=== PATIENT | male | born 1945 | race Caucasian/White ===

== ENCOUNTER → 2016-09-12 | Outpatient (CLI) | payer OTHER ==
[~2016-09-12] MED LIST: ASCO500T3 PO; DVN/160 PO; FERR1TAB13 PO; INSPMPNVLG; L-ME1CAP3 PO; LPT/40 PO; MULT1CAP35 PO; OMEG1CAP14 PO; POTACAP PO; SERT50TA PO; TADA20TA PO; WLLSR/300 PO; [UNRECOGNIZED DRUG - CODE] PO
[2016-09-12 16:46] LABS: ALT/SGPT 27 U/L (12-78); AST/SGOT 19 U/L (15-37); BLOOD UREA NITROGEN 26 mg/dl (7-18); BUN/CREATININE RATIO 17.1 (10-20); CALCIUM 8.8 mg/dl (8.5-10.1); CARBON DIOXIDE 27 mmol/L (21-32); CHLORIDE 107 mmol/L (98-107); GLUCOSE 68 mg/dl (70-99); POTASSIUM 4.4 mmol/L (3.5-5.1); SODIUM 142 mmol/L (136-145)
[2016-09-12 16:57] LABS: ALB/GLOB RATIO 1.2 (0.9-2); ALKALINE PHOSPHATASE 33 U/L (45-117); CHOLESTEROL 171 mg/dl (0-200); CHOLESTEROL/HDL RATIO 2.1; HDL CHOLESTEROL 82 mg/dl; TRIGLYCERIDES 58 mg/dl (0-150); VERY LOW DENSITY LIPOPROT CALC 12 mg/dl
[2016-09-12 17:10] LABS: RATIO 11.9 mcg/mg (0-30.0)
[2016-09-13 07:13] LABS: ESTIMATED AVERAGE GLUCOSE 134 mg/dl; HA1C FLAG Normal (Normal)
== END | disposition home or self-care (01) ==
LOC: C.LAB1850 15:41
PROVIDERS: ATTEND Internal Medicine Endocrinology, Diabetes & Metabolism
DX: E10.9 Type 1 diabetes mellitus without complications (principal)

== ENCOUNTER → 2017-05-04 | Outpatient (CLI) | payer OTHER ==
[2017-05-04 16:56] LABS: THYROID STIMULATING HORMONE 2.73 uIu/ml (0.300-4.500)
[2017-05-05 06:13] LABS: ESTIMATED AVERAGE GLUCOSE 134 mg/dl; HA1C FLAG Normal (Normal)
== END | disposition home or self-care (01) ==
LOC: C.LAB1850 15:16
PROVIDERS: ATTEND Internal Medicine Endocrinology, Diabetes & Metabolism
DX: E78.5 Hyperlipidemia, unspecified (principal); I10 Essential (primary) hypertension; E10.9 Type 1 diabetes mellitus without complications

== ENCOUNTER → 2017-05-07 | Outpatient (CLI) | payer OTHER | END | disposition home or self-care (01) | LOC: C.LABBC 12:44 | PROVIDERS: ATTEND Internal Medicine Endocrinology, Diabetes & Metabolism | DX: E10.21 Type 1 diabetes mellitus with diabetic nephropathy (principal) ==

== ENCOUNTER → 2017-09-10 | Outpatient (CLI) | payer OTHER ==
[2017-09-10 13:58] LABS: HEMOGLOBIN A1C 5.9 % (4.5-5.6)
== END | disposition home or self-care (01) ==
LOC: C.LABBC 12:10
PROVIDERS: ATTEND Internal Medicine Endocrinology, Diabetes & Metabolism
DX: E10.9 Type 1 diabetes mellitus without complications (principal); E03.9 Hypothyroidism, unspecified; E78.5 Hyperlipidemia, unspecified

== ENCOUNTER 2017-11-02 12:42 | Emergency (ER) | payer OTHER ==
[~2017-11-02] VITALS: Ht 180.3 cm; Wt 85.3 kg
[~2017-11-02 12:42] MED LIST changes: -ASCO500T3 PO; -DVN/160 PO; -INSPMPNVLG; -LPT/40 PO; -OMEG1CAP14 PO; -POTACAP PO; -SERT50TA PO; -WLLSR/300 PO; -[UNRECOGNIZED DRUG - CODE] PO
[2017-11-02 12:47] VITALS: TEMP 37; Ht 180.3 cm; Wt 85.3 kg
--- NOTE | 2017-11-02 15:28 | EMERGENCY ROOM VISIT NOTE ---
ED Visit Note First contact with patient: 15:08 Resident Physician Supervision Note: I interviewed and examined the patient. Discussed with Dr. John and agree with findings and plan as documented in the note. Documented By: Jose Luis Cannon
[2017-11-02] MEDS ORDERED: MoRPHine SULFATE 4 MG/ML 1 ML CARP\\VIAL IV STA (15:38)
[2017-11-02] MEDS ORDERED: EZET10TA63 PO (15:51)
[2017-11-02 16:00] LABS: BASO % 0.2 %; BASO ABS # 0.02 K/uL (0-0.2); EOS % 0.5 %; EOS ABS # 0.04 K/uL (0-0.5); HEMOGLOBIN 13.6 g/dL (14.0-18.0); IG# 0.01 K/uL (0.00-0.02); LYMPH % 26.1 %; MEAN CELL VOLUME 89.9 fL (80-100); MEAN CORPUSCULAR HEMOGLOBIN 30.6 pg (25-34); MEAN PLATELET VOLUME 11.1 fL (7.4-10.4); MONO % 7.9 %; MONO ABS # 0.67 K/uL (0.11-0.59); NEUT % 65.2 %; NEUT ABS # 5.49 K/uL (1.4-6.5); PLATELET COUNT 203 K/uL (130-400); RED CELL DISTRIBUTION WIDTH CV 13.3 % (11.5-14.5); RED CELL DISTRIBUTION WIDTH SD 43.5 fL (36.4-46.3); WHITE BLOOD COUNT 8.43 K/uL (4.8-10.8)
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
[2017-11-02 16:21] LABS: ALBUMIN 3.8 gm/dl (3.4-5.0); CALCIUM 8.8 mg/dl (8.5-10.1); CREATININE 1.43 mg/dl (0.60-1.40); POTASSIUM 4.3 mmol/L (3.5-5.1)
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
[2017-11-02 16:24] LABS: TOTAL PROTEIN 7.6 gm/dl (6.4-8.2)
[2017-11-02] MEDS ORDERED: LIDODERM (LIDOCAINE) PATCH 5% TD STA (16:42)
[2017-11-02] MEDS ORDERED: OXYCODONE HCL IR 5 MG TAB (IMMEDIATE RELEASE) PO STA (16:42)
[2017-11-02] MEDS ORDERED: SENN1TAB77 PO (17:01)
[2017-11-02] MEDS ORDERED: OXYC1TAB3 PO (17:01)
[2017-11-02 17:54] VITALS: BP 131/59; PULSE 79; O2SAT 94
[2017-11-02] MEDS ORDERED: ASCO500T3 PO (18:30)
[2017-11-02] MEDS ORDERED: INSPMPNVLG (18:30)
[2017-11-02] MEDS ORDERED: OMEG1CAP14 PO (18:30)
[2017-11-02] MEDS ORDERED: WLLSR/300 PO (18:30)
[2017-11-02] MEDS ORDERED: LPT/40 PO (18:30)
[2017-11-02] MEDS ORDERED: [UNRECOGNIZED DRUG - CODE] PO (18:30)
[2017-11-02] MEDS ORDERED: POTACAP PO (18:44)
[2017-11-02] MEDS ORDERED: DVN/160 PO (18:44)
[2017-11-02] MEDS ORDERED: SERT50TA PO (18:44)
== END 2017-11-02 17:55 | disposition home or self-care (01) ==
LOC: C.EDB 12:43 → C.EDC 17:55
DX: S22.21XA Fracture of manubrium, initial encounter for closed fracture (principal); S22.32XA Fracture of one rib, left side, initial encounter for closed fracture; V49.40XA Driver injured in collision with unspecified motor vehicles in traffic accident, initial encounter; E10.9 Type 1 diabetes mellitus without complications; Z79.82 Long term (current) use of aspirin; Z79.4 Long term (current) use of insulin; Z96.41 Presence of insulin pump (external) (internal)

== ENCOUNTER 2019-04-12 14:43 | Inpatient (IN) ==
--- NOTE | 2019-04-12 14:59 | XRay Report ---
XR chest 1V portable CLINICAL HISTORY: Dyspnea COMPARISON STUDY: 04/10/2019 FINDINGS: There are postsurgical changes of a midline sternotomy. The heart is the upper limits of no rmal in size. There is no failure. There is no focal pulmonary consolidation. There is an equivocal t race left pleural effusion. Minimal left basilar opacities are likely atelectatic IMPRESSION: 1. Suspected trace left pleural effusion 2. Minimal left basilar opacities, likely atelectatic Electronically signed by: Cuate Magallanes M.D. 04/12/2019 2:58 PM
[2019-04-12 15:16] LABS: Basophils # (auto) 0.03 K/uL (0-0.2); Basophils % (auto) 0.4 %; Eosinophils # (auto) 0.49 K/uL (0-0.5); Eosinophils % (auto) 5.9 %; Hemoglobin 9.7 g/dL (14.0-18.0); Immature Granulocytes # (auto) 0.02 K/uL (0.00-0.02); Immature Granulocytes % (auto) 0.2 %; Lymphocytes # (auto) 1.21 K/uL (1.2-3.4); Lymphocytes % (auto) 14.5 %; Mean Corpuscular Hgb Conc 33.4 g/dL (32-36); Mean Corpuscular Volume 91.5 fL (80-100); Mean Platelet Volume 10.6 fL (7.4-10.4); Monocytes # (auto) 0.81 K/uL (0.11-0.59); Monocytes % (auto) 9.7 %; Neutrophils % (auto) 69.3 %; Platelet Count 266 K/uL (130-400); RDW Coefficient of Variation 13.6 % (11.5-14.5); RDW Standard Deviation 45.1 fL (36.4-46.3); Red Blood Count 3.17 M/uL (4.7-6.1); White Blood Count 8.36 K/uL (4.8-10.8)
--- NOTE | 2019-04-12 15:23 | Emergency Department Note ---
Entered by Rex Trore acting as a scribe for History of Present Illness General Chief complaint: Shortness of Breath/Dyspnea Time Seen by Provider: 04/12/19 14:47 Source: patient History of Present Illness Onset (ago): day(s) (few) Location: chest Pain Consistency: + constant Quality: + other (SOB) Exacerbated By: + other (exertion) Associated symptoms: + other (dizziness and lightheadedness) The patient is a 73 y/o male who presents to the ED w/ CC of constant shortness of breath upon exertion beginning a few days ago. The patient states he had an open heart surgery last Thursday and was discharged from [place] on Thursday. He reports prior to coming home from [facility] he performed some rehab by walking around the unit several times. The patient notes he sat in the car for 1.5 hours after discharge Thursday and drove straight to [facility] to get his medication. He states he got out of the car and was instantly dizzy. The patient reports he felt like he was going to pass out and the room was spinning at the same time. He notes shortly after being in the store he was gasping for air and then had to take a break. The patient states he was able to make it back to the car. He reports this happened again yesterday while he tried walking a mile. The patient notes he had to stop 15 times when he normally does not have to. He states he was evaluated in the ED yesterday for shortness of breath and was told it may have been secondary to dehydration. The patient reports he was evaluated by Dr. Jesus, Cardiology today and was referred to the ED. Dr. Jesus called the ED and informed me that he noticed the interior valve between the left and right part of the heart was not working as well as it should be on the echocardiogram. He reports he is concerned the patient may have a PE. Home Medications Home Medications Medication Instructions Recorded Confirmed Type ascorbic acid (vitamin C) [Vitamin 500 mg PO DAILY@2300 #0 11/10/15 04/12/19 History C] insulin aspart U-100 1 sliding scale dose SUBCUT 11/10/15 04/12/19 History CONTINOUS #3 omega 6-xuv-kqa-fish oil 1 cap PO DAILY@2300 #0 11/10/15 04/12/19 History sertraline [Zoloft] 50 mg PO DAILY@2300 #0 11/10/15 04/12/19 History atorvastatin 80 mg tablet 80 mg PO DAILY@2300 tab 02/23/19 04/12/19 History bupropion HCl XL 300 mg 24 hr 300 mg PO DAILY@2300 tab 02/23/19 04/12/19 History tablet, extended release docusate sodium 100 mg capsule 100 mg PO BID cap 02/23/19 04/12/19 History ezetimibe 10 mg tablet 10 mg PO DAILY@2300 #90 tab 02/23/19 04/12/19 History ferrous sulfate 325 mg (65 mg 650 mg PO QAM tab 02/23/19 04/12/19 History iron) tablet levothyroxine 50 mcg tablet 50 mcg PO QAM #90 tab 02/23/19 04/12/19 History ranitidine 150 mg tablet 300 mg PO DAILY@2300 tab 02/23/19 04/12/19 History loratadine [Claritin] 10 mg PO DAILY@2300 04/04/19 04/12/19 History vitamin B complex 1 tab PO DAILY@2300 04/04/19 04/12/19 History amiodarone 200 mg PO BID 04/10/19 04/12/19 History aspirin 162 mg PO QAM 04/10/19 04/12/19 History furosemide [Lasix] 40 mg PO DAILY@2300 04/10/19 04/12/19 History metoprolol succinate 25 mg PO DAILY@2300 04/10/19 04/12/19 History oxycodone 5 mg PO Q4H PRN 04/10/19 04/12/19 History Allergies Allergy/AdvReac Type Severity Reaction Status Date / Time No Known Allergies Allergy Verified 04/12/19 15:34 Past Med/Surg History Medical History Chronic renal insufficiency (Chronic) Diabetes mellitus type 1, controlled (Chronic) Dyslipidemia (Chronic) Hypertension (Chronic) Surgical History History of knee surgery History of left knee surgery History of quadruple bypass Family History Father Cardiac disorder Social History Preferred Language: Swedish Beliefs That Will Affect Care: None Current Living Situation: Alone Feels Safe at Home: Yes Smoking Status: Former smoker Hx Alcohol Use: No Hx Substance Use: No Review of Systems See HPI for pertinent positives & negatives. and A total of 10 systems reviewed and were otherwise negative Physical Exam Vital Signs Vital Signs - 24 hr 04/12/19 14:48 04/12/19 14:53 04/12/19 15:10 Temperature 37.1 C Temperature Source Oral Sepsis Recent Fever Within 48 Hours No Sepsis New/Unexplained Change in Mental Status No Sepsis Action Taken by Nursing No Action Required Pulse Rate 69 Pulse Rate [Right Finger] Pulse Rhythm Regular Pulse Strength Normal Respiratory Rate 20 Respiratory Effort / Characteristics Non-Labored Spontaneous Non-Labored Respiratory Depth Normal Respiratory Pattern Regular Blood Pressure 138/69 Blood Pressure [Right Arm] Blood Pressure Mean 92 Blood Pressure Mean [Right Arm] Blood Pressure Position Sitting Pulse Oximetry 93 93 Oxygen Delivery Method Room Air Room Air 04/12/19 15:38 04/12/19 16:39 04/12/19 17:58 Temperature Temperature Source Sepsis Recent Fever Within 48 Hours Sepsis New/Unexplained Change in Mental Status Sepsis Action Taken by Nursing Pulse Rate Pulse Rate [Right Finger] 67 70 96 H Pulse Rhythm Pulse Strength Respiratory Rate 18 20 20 Respiratory Effort / Characteristics Non-Labored Respiratory Depth Normal Respiratory Pattern Blood Pressure Blood Pressure [Right Arm] 141/66 H 138/61 155/60 H Blood Pressure Mean Blood Pressure Mean [Right Arm] 91 86 91 Blood Pressure Position Pulse Oximetry 98 98 98 Oxygen Delivery Method Room Air Room Air Room Air GENERAL: Patient is awake alert in no acute distress patient is resting comfortably and showing no signs of anxiety EYES: The conjunctivae are clear. The pupils are round and reactive. EARS, NOSE, MOUTH AND THROAT: The nose is without any evidence of any deformity. Mucous membranes are moist tongue is midline NECK: The neck is nontender and supple. RESPIRATORY: Diminished breath sounds are noted at both bases. There is no tachypnea or conversational dyspnea at rest. CARDIOVASCULAR: Regular rate and rhythm noted there no murmurs rubs or gallops normal S1 normal S2 GASTROINTESTINAL: The abdomen is soft. Bowel sounds are present in all quadrants. Abdomen is nontender MUSCULOSKELETAL/EXTREMITIES: There is no evidence of gross deformity full range of motion is noted in the hips and shoulders SKIN: There is no obvious evidence of any rash. Postoperative sites were noted on the upper abdomen the sternal area as well as the left lower extremity. There is no erythema or drainage or dehiscence appreciated. Pedal edema was noted bilaterally. Left greater than right. NEUROLOGIC: Patient is awake alert and oriented x3. Course 1459: Past medical records reviewed. The patient was evaluated in room C3. A complete history and physical exam was performed. 1702: I discussed the patient's case with Dr. Adams, Cardiology. He recommen ds the patient be further evaluated. 1715: I discussed the patient's case with Dr. Lui, [facility] Hospitalist. The patient will be evaluated for further management. Administered Medications Discontinued Medications Ioversol (Optiray 320 125ml) 119 ml IV ONCE PRN PRN Reason: Interaction Checking Stop: 04/16/19 16:28 Last Admin: 04/12/19 16:30 Dose: 119 ml Documented by: [id number] Medical Decision Making Differential Diagnosis Differential diagnoses includes but is not limited to pneumonia, bronchitis, COPD/Asthma exacerbation, pneumothorax, pulmonary embolism, congestive heart failure, acute coronary syndrome Medical Records Attestation: I reviewed the patient's medical records. Home Medications Current Medication List: was personally reviewed by me Laboratory Data Attestation: I reviewed the patient's lab results. Result diagrams: 04/12/19 14:48 04/12/19 14:48 Lab Results 04/12/19 04/12/19 04/12/19 Range/Units 14:48 14:48 15:12 WBC 8.36 (4.8-10.8) K/uL RBC 3.17 L (4.7-6.1) M/uL Hgb 9.7 L (14.0-18.0) g/dL Hct 29.0 L (42-52) % MCV 91.5 (80-100) fL MCH 30.6 (25-34) pg MCHC 33.4 (32-36) g/dL RDW Std Deviation 45.1 (36.4-46.3) fL RDW Coeff of Andres 13.6 (11.5-14.5) % Plt Count 266 (130-400) K/uL MPV 10.6 H (7.4-10.4) fL Immature Gran % (Auto) 0.2 % Neut % (Auto) 69.3 % Lymph % (Auto) 14.5 % [place] % (Auto) 9.7 % Eos % (Auto) 5.9 % Baso % (Auto) 0.4 % Immature Gran # (Auto) 0.02 (0.00-0.02) K/uL Neut # (Auto) 5.80 (1.4-6.5) K/uL Lymph # (Auto) 1.21 (1.2-3.4) K/uL [place] # (Auto) 0.81 H (0.11-0.59) K/uL Eos # (Auto) 0.49 (0-0.5) K/uL Baso # (Auto) 0.03 (0-0.2) K/uL PT 11.5 (9.0-12.0) Seconds INR 1.1 (0.9-1.1) APTT 30.3 (21.0-31.0) Seconds PTT Ratio 1.1 POC D-Dimer (0-450) ng/mlFEU Sodium 140 (136-145) mmol/L Potassium 4.0 (3.5-5.1) mmol/L Chloride 105 (98-107) mmol/L Carbon Dioxide 27 (21-32) mmol/L Anion Gap 8.0 (3-11) BUN 29 H (7-18) mg/dl Creatinine 1.76 H (0.6-1.4) mg/dl Est Cr Clr Drug Dosing 44.4 ml/min Est GFR ( Amer) 44.1 Est GFR (Non-Af Amer) 38.1 BUN/Creatinine Ratio 16.4 (10-20) Glucose 93 (70-99) mg/dl Calcium 8.5 (8.5-10.1) mg/dl Magnesium 2.1 (1.8-2.4) mg/dl Total Bilirubin 0.5 (0.2-1) mg/dl AST 26 (15-37) U/L ALT 32 (12-78) U/L Alkaline Phosphatase 54 (45-117) U/L Total Creatine Kinase 182 (39-308) U/L CK-MB (CK-2) 1.7 (0.5-3.6) ng/ml CK/CKMB % Calc 0.9 (0-3.0) POC Troponin I (0-0.045) ng/ml NT-Pro-B Natriuret Pep 2971 H (0-900) pg/ml Total Protein 6.7 (6.4-8.2) gm/dl Albumin 3.4 (3.4-5.0) gm/dl Globulin 3.3 (2.5-4.0) gm/dl Albumin/Globulin Ratio 1.0 (0.9-2) 04/12/19 Range/Units 15:22 WBC (4.8-10.8) K/uL RBC (4.7-6.1) M/uL Hgb (14.0-18.0) g/dL Hct (42-52) % MCV (80-100) fL MCH (25-34) pg MCHC (32-36) g/dL RDW Std Deviation (36.4-46.3) fL RDW Coeff of Andres (11.5-14.5) % Plt Count (130-400) K/uL MPV (7.4-10.4) fL Immature Gran % (Auto) % Neut % (Auto) % Lymph % (Auto) % [place] % (Auto) % Eos % (Auto) % Baso % (Auto) % Immature Gran # (Auto) (0.00-0.02) K/uL Neut # (Auto) (1.4-6.5) K/uL Lymph # (Auto) (1.2-3.4) K/uL [place] # (Auto) (0.11-0.59) K/uL Eos # (Auto) (0-0.5) K/uL Baso # (Auto) (0-0.2) K/uL PT (9.0-12.0) Seconds INR (0.9-1.1) APTT (21.0-31.0) Seconds PTT Ratio POC D-Dimer > 450 H* (0-450) ng/mlFEU Sodium (136-145) mmol/L Potassium (3.5-5.1) mmol/L Chloride (98-107) mmol/L Carbon Dioxide (21-32) mmol/L Anion Gap (3-11) BUN (7-18) mg/dl Creatinine (0.6-1.4) mg/dl Est Cr Clr Drug Dosing ml/min Est GFR ( Amer) Est GFR (Non-Af Amer) BUN/Creatinine Ratio (10-20) Glucose (70-99) mg/dl Calcium (8.5-10.1) mg/dl Magnesium (1.8-2.4) mg/dl Total Bilirubin (0.2-1) mg/dl AST (15-37) U/L ALT (12-78) U/L Alkaline Phosphatase (45-117) U/L Total Creatine Kinase (39-308) U/L CK-MB (CK-2) (0.5-3.6) ng/ml CK/CKMB % Calc (0-3.0) POC Troponin I 0.09 H (0-0.045) ng/ml NT-Pro-B Natriuret Pep (0-900) pg/ml Total Protein (6.4-8.2) gm/dl Albumin (3.4-5.0) gm/dl Globulin (2.5-4.0) gm/dl Albumin/Globulin Ratio (0.9-2) Imaging Data Radiologist's Impression: Radiology results as stated below per my review and the radiologist's interpretation: XR chest 1V portable CLINICAL HISTORY: Dyspnea COMPARISON STUDY: 04/10/2019 FINDINGS: There are postsurgical changes of a midline sternotomy. The heart is the upper limits of normal in size. There is no failure. There is no focal pulmonary consolidation. There is an equivocal trace left pleural effusion. Minimal left basilar opacities are likely atelectatic IMPRESSION: 1. Suspected trace left pleural effusion 2. Minimal left basilar opacities, likely atelectatic Electronically signed by: Cuate Magallanes M.D. 04/12/2019 2:[address] angio chest PE protocol CT DOSE: 523.83 mGy.cm HISTORY: 73 years-old Male with PE. Acute shortness of breath with recent cardiac bypass TECHNIQUE: Multiple CTA images of the chest were obtained after the intravenous administration of 119 ml Optiray 320. Coronal and sagittal MIPS were obtained from the axial data set and were submitted for review. All measurements were obtained according to NASCET criteria. A dose lowering technique was utilized adhering to the principles of ALARA. COMPARISON: Chest radiograph of same day, chest CT 11/02/2017 FINDINGS: CTA: Cardiomegaly. Trace pericardial effusion. Extensive coronary arterial calcifications are noted. Postoperative changes compatible with CABG. No thoracic aortic aneurysm or dissection. Patency of the imaged great vessels. Pulmonary arterial tree is opacified to the level of the proximal subsegmental branches and demonstrates no focal filling defects to suggest pulmonary thromboembolic disease. CT CHEST: Homogeneous thyroid. No adenopathy. Stranding with trace edema of the anterior mediastinal fat with recent sternotomy changes. No drainable fluid collection or retained foreign body. Additional stranding within the subcutaneous presternal tissues. A few scattered foci of tissue air noted within the presternal and retrosternal tissues. Small right and small moderate left pleural effusions with dependent bibasilar consolidation. There is no pneumothorax. No overt pulmonary edema. Mild bibasilar bronchial wall thickening. No suspicious pulmonary nodules or masses. Central airways appear patent. No acute process of the imaged upper abdomen. Postoperative changes of the right humeral head. Acute nondisplaced fracture of the lateral left fifth rib. IMPRESSION: 1. No evidence of pulmonary thromboembolic disease or acute aortic pathology. 2. Postoperative changes from recent median sternotomy and CABG. Stranding with edema within the presternal and retrosternal tissues with a few scattered foci of deep tissue and anterior mediastinal air are likely expected postsurgical findings. No drainable fluid collection. 3. Small right and [id number] left pleural effusions with dependent bibasilar consolidation suggestive of atelectasis. 4. Acute nondisplaced fracture of the lateral left fifth rib. The above report was generated using voice recognition software. It may contain grammatical, syntax or spelling errors. Electronically signed by: Masoud Morris M.D. 04/12/2019 4:47 PM ECG Data Attestation: I personally reviewed and interpreted this ECG as follows: Indication: SOB/dyspnea Rate (beats per minute): 68 Rhythm: sinus rhythm Findings: + PAC; no ST depression, no ST elevation and no acute ischemic change Comparison ECG Date: from (04/10/19) Change: no significant change Blood Pressure Blood Pressure Findings: Elevated blood pressure Blood Pressure Disposition: elevated BP felt to be situational MDM Narrative The patient is a 73-year-old male who presented to the emergency department for an evaluation of chest pain and shortness of breath on exertion. Patient has a history of recent coronary artery bypass grafting in [place]. The patient was seen in our facility recently and followed up with his associate producer today. The associate producer did an echocardiogram and felt it could be consistent with a wall motion abnormality which could represent ischemia versus right sided strain which could be consistent with a pulmonary M was not. Given the patient's symptoms he was sent to the emergency department for evaluation as well as CAT scan of the chest. The patient's associate producer who saw him today did call me and discussed his concerns with me. He did recommend that we obtain a CAT scan of the chest as well as other cardiac work-up. I discussed the patient's laboratory and radiographic studies with him. He was found to have signs of pleural effusions which could be expected after the bypass surgery but could explain the patient's symptoms. He was not found to have a significant elevation in his troponin compared to previous and he was not found to have signs of pulmonary embolism on CAT scan. I discussed the patient's laboratory and radiographic studies with the on-call [facility] Hospitalist group. I also discussed this case with the patient's associate producer who sent him to the emergency department. They did recommend further inpatient work-up. The patient was evaluated by the [facility] Hospitalist in the emergency department. He was felt to be a good candidate for further inpatient work-up at our facility. Impression & Plan Chest pain, Dizziness, Pleural effusion Discharge Plan Visit Data *Final* Discharge Date/Time: 04/12/19 19:40 Chief Complaint: Shortness of Breath/Dyspnea ED Provider: Jeff Alberts Discharge Problem: Chest pain, Dizziness, Pleural effusion Patient Disposition: Admitted As Inpatient Discharge Instructions Interventions: ED Discharge Assessment Last Done: 04/12/19 19:40 Discharge Problem: Chest pain Qualifiers: Chest pain type: unspecified Qualified Code(s): R07.9 - Chest pain, unspecified The scribe's documentation has been prepared under my direction and personally reviewed by me in its entirety. I confirm that the note above accurately reflects all work, treatment, procedures, and medical decision making performed by me.
[2019-04-12 15:32] LABS: Albumin Level 3.4 gm/dl (3.4-5.0); BUN Creatinine Ratio 16.4 (10-20); Calcium 8.5 mg/dl (8.5-10.1); Creatinine Clr Calc Pharmacy 44.4 ml/min; Est GFR (African American) 44.1; Est GFR (Non-African American) 38.1; Magnesium 2.1 mg/dl (1.8-2.4)
[2019-04-12 15:37] LABS: Bilirubin,Total 0.5 mg/dl (0.2-1); Creatine Kinase MB 1.7 ng/ml (0.5-3.6); Globulin 3.3 gm/dl (2.5-4.0); Total Protein 6.7 gm/dl (6.4-8.2)
[2019-04-12 15:40] LABS: INR 1.1 (0.9-1.1); Partial Thromboplastin Ratio 1.1; Partial Thromboplastin Time 30.3 Seconds (21.0-31.0); Prothrombin Time 11.5 Seconds (9.0-12.0)
[2019-04-12] MEDS ORDERED: OPTIRAY 320 125ml IV PRN (16:29)
--- NOTE | 2019-04-12 16:48 | CT Scan Report ---
CT angio chest PE protocol CT DOSE: 523.83 mGy.cm HISTORY: 73 years-old Male with PE. Acute shortness of breath with recent cardiac bypass TECHNIQUE: Multiple CTA images of the chest were obtained after the intravenous administration of 119 ml Optiray 320. Coronal and sagittal MIPS were obtained from the axial data set and were submitted for review. All measurements were obtained according to NASCET criteria. A dose lowering technique w as utilized adhering to the principles of ALARA. COMPARISON: Chest radiograph of same day, chest CT 11/02/2017 FINDINGS: CTA: Cardiomegaly. Trace pericardial effusion. Extensive coronary arterial calcifications are noted. Posto perative changes compatible with CABG. No thoracic aortic aneurysm or dissection. Patency of the imag ed great vessels. Pulmonary arterial tree is opacified to the level of the proximal subsegmental bran ches and demonstrates no focal filling defects to suggest pulmonary thromboembolic disease. CT CHEST: Homogeneous thyroid. No adenopathy. Stranding with trace edema of the anterior mediastinal fat with r ecent sternotomy changes. No drainable fluid collection or retained foreign body. Additional strandin g within the subcutaneous presternal tissues. A few scattered foci of tissue air noted within the pre sternal and retrosternal tissues. Small right and small moderate left pleural effusions with dependent bibasilar consolidation. There i s no pneumothorax. No overt pulmonary edema. Mild bibasilar bronchial wall thickening. No suspicious pulmonary nodules or masses. Central airways appear patent. No acute process of the imaged upper abdo men. Postoperative changes of the right humeral head. Acute nondisplaced fracture of the lateral left fifth rib. IMPRESSION: 1. No evidence of pulmonary thromboembolic disease or acute aortic pathology. 2. Postoperative changes from recent median sternotomy and CABG. Stranding with edema within the pres ternal and retrosternal tissues with a few scattered foci of deep tissue and anterior mediastinal air are likely expected postsurgical findings. No drainable fluid collection. 3. Small right and loxwj-[id number] left pleural effusions with dependent bibasilar consolidation roman ggestive of atelectasis. 4. Acute nondisplaced fracture of the lateral left fifth rib. The above report was generated using voice recognition software. It may contain grammatical, syntax o r spelling errors. Electronically signed by: Masoud Morris M.D. 04/12/2019 4:47 PM
--- NOTE | 2019-04-12 17:22 | Cardiology Progress Note ---
Date of Service April 12, 2019 Subjective Patient seen at [facility] today by the undersigned, full note in the pt's outpatient [facility] Chart. I am entering this note remotely from the [facility] site, as pt is currently in the ED. I discussed the pt's ED test results with Dr Alberts and reviewed the CT images and report. The radiology report summarizes the followin. No evidence of pulmonary thromboembolic disease or acute aortic pathology. 2. Postoperative changes from recent median sternotomy and CABG. Stranding with edema within the presternal and retrosternal tissues with a few scattered foci of deep tissue and anterior mediastinal air are likely expected postsurgical findings. No drainable fluid collection. 3. Small right and [id number] left pleural effusions with dependent bibasilar consolidation suggestive of atelectasis. 4. Acute nondisplaced fracture of the lateral left fifth rib. Troponin is trending down compared to prior. Recommend inpatient treatment for diuresis, as intensification of his diuretics as an outpatient seems like a poor plan given his exertional dizziness that is associated with the shortness of breath. Given his degree of chronic kidney disease the fact that he received IV contrast, will hold off on further diuretics tonight, and resume tomorrow, 04/12/2019 with IV diuretics as long as his renal function is stable. I am working on having his CT images transfer to the [facility] PACs system so that Dr Rodriguez of CT surgery can review them. Case discussed with Dr Peterson who is covering hospital service for us this evening. Results & Data Vital Signs (Past 12 Hours) Vital Signs Temp Pulse Pulse Resp BP BP Pulse Ox 04/12/19 16:39 70 20 138/61 98 04/12/19 15:38 67 18 141/66 H 98 04/12/19 14:53 37.1 C 69 20 138/69 93 04/12/19 14:48 93
--- NOTE | 2019-04-12 18:50 | History & Physical Report ---
Date of Service April 12, 2019 Assessment & Plan (1) WEBSTER (dyspnea on exertion): Presents with significant dyspnea on exertion, shortness of breath with minimum activity, more pronounced after being discharged from [facility] Status post recent coronary artery bypass surgery approximately 7 days ago Possible secondary to post cardiotomy syndrome/pericarditis? Does not have the typical presentation of pleuritic chest pain, no orthopnea CT chest noncontrast shows cardial effusion with trace bilateral pleural effusion , no cough, no evidence of volume overload, Echo shows possible new wall motion abnormality Given patient's underlying complexity of coronary artery disease, recent cardiac intervention patient is transferred to [facility] under cardiology service (2) Dizziness: Presents with persistent dizzy spell, lightheadedness, more pronounced when standing up, Reports of 23 episodes of presyncope, had not had any fall or loss of consciousness Blood pressure, vitals stable during ER visit CT chest with contrast shows no evidence of any acute PE No cardiac arrhythmia: A. fib noted on telemetry No ischemic change in EKG (3) Pleural effusion: Noted in CT chest with contrast, Reports of dyspnea on exertion, no orthopnea, No cough, no hypoxia Differentials includes: Possible acute CHF, post recent CABG versus post pericardiotomy syndrome, pericarditis? On p.o. Lasix, which kept on hold as patient got contrast load for CTA chest Cardiology consulted, appreciate input Patient is being transferred to [facility] under cardiology service for further care (4) S/P CABG (coronary artery bypass graft): Patient had exercise stress test on 03/23/2019: Showed inducible ischemia particularly in the left coronary artery system: Status post cardiac cath on 04/04/2019: Showed multivessel coronary artery disease including 70% left main stenosis Is transferred to [facility], Status post CABG x5 with EISENBERG to LAD, SVG to diagonal, SVG to ramus intermedius, SVG to OM, SVG to PDA by Dr. Barronardiothoracic surgery Patient had postop atrial fibrillation, which was treated with p.o. amiodarone Discharged on 04/10/2019 Developed worsening of shortness of breath and dyspnea on exertion, dizzy spell lightheadedness post discharge Seen at cardiology clinic at [facility] Have a new wall motion abnormality on echo Transferred to [facility] ER Patient will be transferred to [facility], under cardiology service for further care Plan of care discussed with cardiology at [place] (5) Chronic renal insufficiency: CKD stage III, creatinine 1.7 Follow BMP closely as patient got contrast exposure for CT chest with contrast today (6) Diabetes mellitus type 1, controlled: On insulin pump, continue (7) Hypertension: Continue beta-domenico No hypotensive episode noted during ER visit and brief hospital stay CODE STATUS: Full code DVT prophylaxis: Subcu heparin Disposition: Patient is transferred to [facility], Accepting physician cardiology Dr. Armond Edgar History of Present Illness Primary Care Provider: Bill Mendoza, This is a 73-year-old male, with history of coronary artery disease, type 1 diabetes on insulin pump Underwent coronary artery bypass surgery-5 vessels, on 04/05/[address] Rodriguez Patient had brief episode of atrial fibrillation, converted to sinus, patient was started with p.o. amiodarone. 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, felt severely short of breath, dizzy spell and lightheadedness, to hold on to the railing Patient came to [facility] ER, chest x-ray showed small bilateral pleural effusion, EKG showed no ST-T wave changes, Patient was given IV fluids, with resumption possible dehydration, hypotension leading to dizzy spell Patient was discharged home Patient continue to take his amiodarone metoprolol and furosemide Scheduled to have cardiology follow-up on 04/12/2019 Patient continues to experience dyspnea on exertion with minimum activity, No syncope, no fever chills, no cough, Denied of having any episode of chest heaviness No orthopnea, no lower extremity swelling Today afternoon patient was at [facility] clinic for his cardiology visit, On the hallway patient felt extremely dizzy and lightheaded, significant short of breath Patient had echocardiogram done at [facility] by Dr. Adams: Which showed new septal wall motion abnormality, not present on his preop echocardiogram done on 04/04/2009 at [facility] Patient was sent to [facility] ER, CT chest with contrast shows no evidence of PE, small pericardial effusion, trace pleural effusion Patient admitted to PCU/telemetry unit Allergies Allergy/AdvReac Type Severity Reaction Status Date / Time No Known Allergies Allergy Verified 04/12/19 15:34 Home Medications Home Medications Medication Instructions Recorded Confirmed Type ascorbic acid (vitamin C) [Vitamin 500 mg PO DAILY@2300 #0 11/10/15 04/12/19 History C] insulin aspart U-100 1 sliding scale dose SUBCUT 11/10/15 04/12/19 History CONTINOUS #3 omega 4-cng-idb-fish oil 1 cap PO DAILY@2300 #0 11/10/15 04/12/19 History sertraline [Zoloft] 50 mg PO DAILY@2300 #0 11/10/15 04/12/19 History atorvastatin 80 mg tablet 80 mg PO DAILY@2300 tab 02/23/19 04/12/19 History bupropion HCl XL 300 mg 24 hr 300 mg PO DAILY@2300 tab 02/23/19 04/12/19 History tablet, extended release docusate sodium 100 mg capsule 100 mg PO BID cap 02/23/19 04/12/19 History ezetimibe 10 mg tablet 10 mg PO DAILY@2300 #90 tab 02/23/19 04/12/19 History ferrous sulfate 325 mg (65 mg 650 mg PO QAM tab 02/23/19 04/12/19 History iron) tablet levothyroxine 50 mcg tablet 50 mcg PO QAM #90 tab 02/23/19 04/12/19 History ranitidine 150 mg tablet 300 mg PO DAILY@2300 tab 02/23/19 04/12/19 History loratadine [Claritin] 10 mg PO DAILY@2300 04/04/19 04/12/19 History vitamin B complex 1 tab PO DAILY@2300 04/04/19 04/12/19 History amiodarone 200 mg PO BID 04/10/19 04/12/19 History aspirin 162 mg PO QAM 04/10/19 04/12/19 History furosemide [Lasix] 40 mg PO DAILY@2300 04/10/19 04/12/19 History metoprolol succinate 25 mg PO DAILY@2300 04/10/19 04/12/19 History oxycodone 5 mg PO Q4H PRN 04/10/19 04/12/19 History Past Med/Surg History Medical History Chronic renal insufficiency (Chronic) Diabetes mellitus type 1, controlled (Chronic) Dyslipidemia (Chronic) Hypertension (Chronic) Surgical History History of knee surgery History of left knee surgery History of quadruple bypass Family History Father Cardiac disorder Social History Preferred Language: [place] Beliefs That Will Affect Care: None Current Living Situation: Alone Feels Safe at Home: Yes Smoking Status: Former smoker Hx Alcohol Use: No Hx Substance Use: No Review of Systems Review of Systems: All systems reviewed & are unremarkable except as noted in HPI & below Physical Exam Constitutional: WD/WN, vitals as above no acute distress Eyes: PERRL, conjunctivae normal, anicteric sclerae ENMT: external ear and nose normal, oropharynx normal Neck: trachea midline, no thyromegaly Respiratory: normal respiratory effort; no respiratory distress, no labored breathing and no cough Auscultation: + rales (Bibasilar Rales); no wheezes Cardiovascular: RRR, no murmur, no edema Extremities: no pedal edema No JVD Gastrointestinal (Abdomen): normal bowel sounds, soft, nontender, no hepatosplenomegaly Musculoskeletal: Status post recent CABG, mid sternotomy scar healing well, no erythema or tenderness or swelling noted Skin: no rashes, warm and dry Neurologic: patellar DTR's 2+ bilat, sensation intact Psychiatric: Orientation: alert and oriented x 3 Mood: + anxious mood Results & Data Vital Signs (Past 12 Hours) Vital Signs Temp Pulse Pulse Resp BP BP Pulse Ox 04/12/19 17:58 96 H 20 155/60 H 98 04/12/19 16:39 70 20 138/61 98 04/12/19 15:38 67 18 141/66 H 98 04/12/19 14:53 37.1 C 69 20 138/69 93 04/12/19 14:48 93 Code Status & VTE Plan VTE Prophylaxis Plan VTE Prophylaxis will be ordered: Yes
[2019-04-12] MEDS ORDERED: ACETAMINOPHEN 325 MG TAB PO PRN (20:22)
[2019-04-12] MEDS ORDERED: NON-FORMULARY MEDICATION (Insulin Aspart U-100 1 sliding scale dose) SQ SCH (20:22)
[2019-04-12] MEDS ORDERED: NITROGLYCERIN SL 0.4 MG/TAB TAB SL PRN (20:22)
[2019-04-12] MEDS ORDERED: OXYCODONE HCL IR 5 MG TAB (IMMEDIATE RELEASE) PO PRN (20:22)
[2019-04-12] MEDS ORDERED: CARBOHYDRATES FOR HYPOGLYCEMIA PO PRN (21:00)
[2019-04-12] MEDS ORDERED: NovoLOG INSULIN PUMP SCH (21:00)
[2019-04-12] MEDS ORDERED: GLUCAGON FOR INJ 1 MG VIAL SQ PRN (21:00)
[2019-04-12] MEDS ORDERED: INSULIN ASPART 100 UNITS/ML VIAL SC PRN (21:00)
[2019-04-12] MEDS ORDERED: DOCUSATE SODIUM 100 MG CAP PO SCH (21:00)
[2019-04-12] MEDS ORDERED: GLUCOSE 10 TABS/TUBE PO PRN (21:00)
[2019-04-12] MEDS ORDERED: DEXTROSE 50% 50 ML SYRINGE IV PRN (21:00)
[2019-04-12] MEDS ORDERED: GLUCOSE 40% GEL 15 GM TUBE PO PRN (21:00)
[2019-04-12] MEDS ORDERED: AMIODARONE 200 MG TAB PO SCH (21:00)
--- NOTE | 2019-04-12 21:08 | Discharge Summary ---
Date of Service April 12, 2019 Admission HPI Per Admitting Provider This is a 73-year-old male, with history of coronary artery disease, type 1 diabetes on insulin pump Underwent coronary artery bypass surgery-5 vessels, on 04/05/[address] Rodriguez Patient had brief episode of atrial fibrillation, converted to sinus, patient was started with p.o. amiodarone. 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, felt severely short of breath, dizzy spell and lightheadedness, to hold on to the railing Patient came to ER, chest x-ray showed small bilateral pleural effusion, EKG showed no ST-T wave changes, Patient was given IV fluids, with resumption possible dehydration, hypotension leading to dizzy spell Patient was discharged home Patient continue to take his amiodarone metoprolol and furosemide Scheduled to have cardiology follow-up on 04/12/2019 Patient continues to experience dyspnea on exertion with minimum activity, No syncope, no fever chills, no cough, Denied of having any episode of chest heaviness No orthopnea, no lower extremity swelling Today afternoon patient was at [facility] clinic for his cardiology visit, On the hallway patient felt extremely dizzy and lightheaded, significant short of breath Patient had echocardiogram done at [facility] by Dr. Adams: Which showed new septal wall motion abnormality, not present on his preop echocardiogram done on 04/04/[address] [facility] Patient was sent to ER, CT chest with contrast shows no evidence of PE, small pericardial effusion, trace pleural effusion Patient admitted to PCU/telemetry unit Principal Diagnosis RECENT X5 VESSEL CABG AT [facility] ON 04/05/19 , NEW ONSET OF WEBSTER /SOB /DIZZY SPELL /NEW WALL MOTION CHANGE NOTED IN ECHO DONE 04/12/19 Discharge Exam Constitutional WD/WN, vitals as above no acute distress Eyes PERRL, conjunctivae normal, anicteric sclerae ENMT external ear and nose normal, oropharynx normal Neck trachea midline, no thyromegaly Respiratory normal respiratory effort; no respiratory distress, no labored breathing and no cough Auscultation: + rales (Bibasilar Rales); no wheezes Cardiovascular RRR, no murmur, no edema Extremities: no pedal edema Gastrointestinal (Abdomen) normal bowel sounds, soft, nontender, no hepatosplenomegaly Skin no rashes, warm and dry Neurologic patellar DTR's 2+ bilat, sensation intact Psychiatric Orientation: alert and oriented x 3 Mood: + anxious mood Discharge Data Allergies Allergy/AdvReac Type Severity Reaction Status Date / Time No Known Allergies Allergy Verified 04/12/19 15:34 Consultations 04/12/19 17:18 ED Decision to Admit Stat 04/12/19 20:22 Consult Cardiology Routine Consult Case Management - Discharge Planning Routine Ordered Studies 04/12/19 15:39 CT angio chest PE protocol Stat Hospital Course (1) WEBSTER (dyspnea on exertion): Presents with significant dyspnea on exertion, shortness of breath with minimum activity, more pronounced after being discharged from [facility] Status post recent coronary artery bypass surgery approximately 7 days ago Possible secondary to post cardiotomy syndrome/pericarditis? Does not have the typical presentation of pleuritic chest pain, no orthopnea CT chest noncontrast shows cardial effusion with trace bilateral pleural effusion , no cough, no evidence of volume overload, Echo shows possible new wall motion abnormality Given patient's underlying complexity of coronary artery disease, recent cardiac intervention patient is transferred to [facility] under cardiology service (2) Dizziness: Presents with persistent dizzy spell, lightheadedness, more pronounced when standing up, Reports of 23 episodes of presyncope, had not had any fall or loss of consciousness Blood pressure, vitals stable during ER visit CT chest with contrast shows no evidence of any acute PE No cardiac arrhythmia: A. fib noted on telemetry No ischemic change in EKG (3) Pleural effusion: Noted in CT chest with contrast, Reports of dyspnea on exertion, no orthopnea, No cough, no hypoxia Differentials includes: Possible acute CHF, post recent CABG versus post pericardiotomy syndrome, pericarditis? On p.o. Lasix, which kept on hold as patient got contrast load for CTA chest Cardiology consulted, appreciate input Patient is being transferred to [facility] under cardiology service for further care (4) S/P CABG (coronary artery bypass graft): Patient had exercise stress test on 03/23/2019: Showed inducible ischemia particularly in the left coronary artery system: Status post cardiac cath on 04/04/2019: Showed multivessel coronary artery disease including 70% left main stenosis Is transferred to [facility], Status post CABG x5 with EISENBERG to LAD, SVG to diagonal, SVG to ramus intermedius, SVG to OM, SVG to PDA by Dr. Barronardiothoracic surgery Patient had postop atrial fibrillation, which was treated with p.o. amiodarone Discharged on 04/10/2019 Developed worsening of shortness of breath and dyspnea on exertion, dizzy spell lightheadedness post discharge Seen at cardiology clinic at [facility] Have a new wall motion abnormality on echo Transferred to ER Patient will be transferred to [facility], under cardiology service for further care Plan of care discussed with cardiology at [place] (5) Chronic renal insufficiency: CKD stage III, creatinine 1.7 Follow BMP closely as patient got contrast exposure for CT chest with contrast today (6) Diabetes mellitus type 1, controlled: On insulin pump, continue (7) Hypertension: Continue beta-domenico No hypotensive episode noted during ER visit and brief hospital stay CODE STATUS: Full code DVT prophylaxis: Subcu heparin Disposition: Patient is transferred to [facility], Accepting physician cardiology Dr. Armond Edgar Total Time Total Time Spent Total Time Spent (In Minutes): approx 45 mins Discharge Plan Discharge Items Patient Disposition: Transfer Acute Care Hospital Reason For Visit: SOB RECENT CABG Discharge Diagnosis: RECENT X5 VESSEL CABG AT [facility] ON 04/05/19 , NEW ONSET OF WEBSTER /SOB /DIZZY SPELL /NEW WALL MOTION CHANGE NOTED IN ECHO DONE 04/12/19 Discharge Goals: Decrease discomfort Activity: As commented below Activity Comment: TOLERATED Non-emergency contact: Primary Care Provider and Business Solutions Architect Call non-emergency contact if: you have any medication questions and your symptoms worsen Follow-up/Referrals: Bill Mendoza DO [Primary Care Provider] - Diet: Carb Count or DM1 and Heart Healthy Addtl Provider Instructions: Patient is being transferred to [facility] Accepting physician cardiology Dr. Armond Edgar Prescriptions: Continued ascorbic acid (vitamin C) [Vitamin C] 500 mg Tablet 500 mg PO DAILY@2300 Qty: 0 RF: 0 insulin aspart U-100 100 unit/mL Cartridge 1 sliding scale dose subcut CONTINOUS Qty: 3 RF: 0 omega 7-ghy-btp-fish oil 1,200 (144-216) mg Capsule 1 cap PO DAILY@2300 Qty: 0 RF: 0 sertraline [Zoloft] 50 mg Tablet 50 mg PO DAILY@2300 Qty: 0 RF: 0 bupropion HCl 300 mg tablet extended release 24 hr 300 mg PO DAILY@2300 RF: 0 ferrous sulfate 325 mg (65 mg iron) tablet 650 mg PO QAM RF: 0 levothyroxine [Levoxyl] 50 mcg tablet 50 mcg PO QAM Qty: 90 RF: 0 atorvastatin 80 mg tablet 80 mg PO DAILY@2300 RF: 0 docusate sodium 100 mg capsule 100 mg PO BID RF: 0 ezetimibe 10 mg tablet 10 mg PO DAILY@2300 Qty: 90 RF: 0 ranitidine HCl 150 mg tablet 300 mg PO DAILY@2300 RF: 0 furosemide [Lasix] 40 mg Tablet 40 mg PO DAILY@2300 RF: 0 amiodarone 200 mg Tablet 200 mg PO BID RF: 0 aspirin 81 mg Tablet,Delayed Release (Dr/Ec) 162 mg PO QAM RF: 0 metoprolol succinate 25 mg Tablet Extended Release 24 Hr 25 mg PO DAILY@2300 RF: 0 oxycodone 5 mg Tablet 5 mg PO Q4H PRN (Reason: Pain) RF: 0 vitamin B complex Tablet 1 tab PO DAILY@230 RF: 0 loratadine [Claritin] 10 mg Tablet 10 mg PO DAILY@2300 RF: 0 Stand-Alone Forms: [facility] Discharge Orders: Discharge Order (Routine); Ordered 04/12/19 Ordered By: Mansi Lui Admission Data Admit Date/Time: 04/12/19 18:20 Attending Provider: Mansi Lui Admit Provider: Mansi Lui Primary Care Provider: Bill Mendoza Other Providers: Mansi Lui ; Dewayne Peterson ; Floyd Adams ; Emmett Edmond ; Kwan Richardson ; Mandeep Engle ; Frank Coronado ; Angela Borrero ; Ellen Palacios Service: Telemetry
[2019-04-12] MEDS ORDERED: HEPARIN SOD 5,000 UNIT/0.5 ML VIAL SQ SCH (22:00)
[2019-04-12] MEDS ORDERED: SERTRALINE HCL 50 MG TABLET PO SCH (23:00)
[2019-04-12] MEDS ORDERED: OMEGA-3 (PURIFIED FISH OIL) 1 GM CAP PO SCH (23:00)
[2019-04-12] MEDS ORDERED: BuPROPion XL 300 MG TABCR PO SCH (23:00)
[2019-04-12] MEDS ORDERED: EZETIMIBE 10 MG TABLET PO SCH (23:00)
[2019-04-12] MEDS ORDERED: ASCORBIC ACID 500 MG TAB PO SCH (23:00)
[2019-04-12] MEDS ORDERED: VITAMIN B COMPLEX TAB PO SCH (23:00)
[2019-04-12] MEDS ORDERED: LORATADINE 10 MG TAB PO SCH (23:00)
[2019-04-12] MEDS ORDERED: ATORVASTATIN 40 MG TAB PO SCH (23:00)
[2019-04-12] MEDS ORDERED: METOPROLOL SUCC 25MG EXT REL TAB PO SCH (23:00)
[2019-04-13] MEDS ORDERED: LEVOTHYROXINE SODIUM 50 MCG TABLET PO SCH (06:30)
[2019-04-13] MEDS ORDERED: ASPIRIN 81 MG ECTAB PO SCH (09:00)
[2019-04-13] MEDS ORDERED: FERROUS SULFATE 325 MG TAB PO SCH (09:00)
[2019-04-15 10:32] LABS: iSTAT Blood Urea Nitrogen 30 mg/dl (7-18); iSTAT Carbon Dioxide 24 mEq/l (24-31); iSTAT Chloride 100 mEq/L (101-112); iSTAT Glucose 90 mg/dl (70-99); iSTAT Hematocrit 42 % (42-52); iSTAT Hemoglobin 14.3 g/dl (14.0-18.0); iSTAT Ionized Calcium 1.16 mmol/l (1.12-1.32); iSTAT Potassium 3.8 mEq/L (3.3-5.0); iSTAT Sodium 139 mEq/L (135-144)
[2019-04-18] MEDS ORDERED: AMIODARONE 200 MG TAB PO SCH (09:00)
== END 2019-04-12 21:30 | disposition short-term general hospital (02) | DRG 313 ==
LOC: ED 14:43 → 2S 18:20